=== PATIENT | male | born 1945 | race Two or more races ===

== ENCOUNTER 2019-01-22 15:53 | Inpatient (IN) | payer MEDICAID ==
[~2019-01-22] VITALS: Ht 157.5 cm; Wt 73.0 kg
--- NOTE | 2019-01-22 15:57 | NUR ---
ED Nurse Note: Pt is in the bathroom rosaura. Will call again.
[2019-01-22 16:19] VITALS: BP 152/78
--- NOTE | 2019-01-22 16:19 | NUR ---
ED Nurse Note: Patient brought in to ER by daughter from home due to chest pain 01/29. Patient is alert and oriented x4 and ambulatory with assist. calm and cooperative. skin clean and intact. pt is in gown and on speed reading teacher.
--- NOTE | 2019-01-22 16:29 | Emergency Room Report ---
History of Present Illness General Chief Complaint: Chest Pain Source: Patient Present Illness HPI 73-year-old male history of hypertension, presents with intermittent chest pain x3 weeks, last chest pain episode started at 8 AM, he went to urgent care, was noted to have a heart rate of 170s, patient endorses intermittent chest pain pressure-like that comes and goes, aggravated with exertion alleviated with rest , some nausea no diaphoresis, severity is moderate, patient presents for evaluation. Allergies: Coded Allergies: No Known Allergies (Unverified , 01/22/19) Patient History Past Medical History: see triage record Reviewed Nursing Documentation: PMH: Agreed; PSxH: Agreed Nursing Documentation-PMH Past Medical History: No History, Except For History Of Psychiatric Problem: Yes - Anxiety Review of Systems All Other Systems: negative except mentioned in HPI Physical Exam Vital Signs Date Time Temp Pulse Resp B/P (MAP) Pulse Ox O2 Delivery O2 Flow Rate FiO2 01/22/19 16:06 98.2 74 20 152/78 (102) 96 Room Air Sp02 EP Interpretation: reviewed, normal General Appearance: well appearing, no apparent distress, alert Head: normocephalic, atraumatic Eyes: bilateral eye PERRL, bilateral eye EOMI ENT: uvula midline, moist mucus membranes Neck: supple, thyroid normal, supple/symm/no masses Respiratory: lungs clear, no respiratory distress, no retraction, no accessory muscle use Cardiovascular #1: normal peripheral pulses, regular rate, rhythm, no edema, no gallop, no murmur Gastrointestinal: non tender, soft, no guarding, no rebound Musculoskeletal: normal inspection Neurologic: alert, oriented x3 Psychiatric: mood/affect normal Skin: no rash, warm/dry Medical Decision Making Diagnostic Impression: Primary Impression: Chest pain Qualified Codes: R07.9 - Chest pain, unspecified ER Course 73-year-old male history of hypertension presents for with chest pain concerning for possible ACS, aspirin given, EKG conducted, labs drawn, patient will be admitted for ACS rule out ASA given CXR neg Troponin neg Patient admitted to Dr. Roe 5:55pm Laboratory Tests Test 01/22/19 16:15 01/22/19 17:00 White Blood Count 12.7 K/UL (4.8-10.8) H Red Blood Count 4.68 M/UL (4.70-6.10) L Hemoglobin 15.2 G/DL (14.2-18.0) Hematocrit 46.2 % (42.0-52.0) Mean Corpuscular Volume 99 FL (80-99) Mean Corpuscular Hemoglobin 32.4 PG (27.0-31.0) H Mean Corpuscular Hemoglobin Concent 32.9 G/DL (32.0-36.0) Red Cell Distribution Width 13.1 % (11.6-14.8) Platelet Count 217 K/UL (150-450) Mean Platelet Volume 7.0 FL (6.5-10.1) Neutrophils (%) (Auto) 45.7 % (45.0-75.0) Lymphocytes (%) (Auto) 41.7 % (20.0-45.0) Monocytes (%) (Auto) 8.8 % (1.0-10.0) Eosinophils (%) (Auto) 2.6 % (0.0-3.0) Basophils (%) (Auto) 1.2 % (0.0-2.0) Prothrombin Time 10.8 SEC (9.30-11.50) Prothrombin Time INR 1.0 (0.9-1.1) PTT 26 SEC (23-33) Sodium Level 145 MMOL/L (136-145) Potassium Level 4.0 MMOL/L (3.5-5.1) Chloride Level 107 MMOL/L (98-107) Carbon Dioxide Level 30 MMOL/L (21-32) Anion Gap 8 mmol/L (5-15) Blood Urea Nitrogen 16 mg/dL (7-18) Creatinine 1.3 MG/DL (0.55-1.30) Estimate Glomerular Filtration Rate mL/min (>60) Glucose Level 79 MG/DL (74-106) Calcium Level 9.0 MG/DL (8.5-10.1) Total Bilirubin 0.5 MG/DL (0.2-1.0) Aspartate Amino Transferase (AST) 28 U/L (15-37) Alanine Aminotransferase (ALT) 34 U/L (12-78) Alkaline Phosphatase 73 U/L (46-116) Total Creatine Kinase 64 U/L (26-308) Creatine Kinase MB 0.5 NG/ML (0.0-3.6) Creatine Kinase MB Relative Index 0.7 Troponin I 0.000 ng/mL (0.000-0.056) Pro-B-Type Natriuretic Peptide 212 pg/mL (0-125) H Total Protein 7.7 G/DL (6.4-8.2) Albumin 3.6 G/DL (3.4-5.0) Globulin 4.1 g/dL Albumin/Globulin Ratio 0.9 (1.0-2.7) L Lipase 199 U/L (73-393) Thyroid Stimulating Hormone (TSH) 1.572 uiU/mL (0.358-3.740) Free Thyroxine 0.83 NG/DL (0.76-1.46) Free Triiodothyronine 3.2 pg/mL (2.3-4.2) Urine Opiates Screen Negative (NEGATIVE) Urine Barbiturates Screen Negative (NEGATIVE) Phencyclidine (PCP) Screen Negative (NEGATIVE) Urine Amphetamines Screen Negative (NEGATIVE) Urine Benzodiazepines Screen Negative (NEGATIVE) Urine Cocaine Screen Negative (NEGATIVE) Urine Marijuana (THC) Screen Negative (NEGATIVE) EKG Diagnostic Results EKG Time: 16:12 EP Interpretation: NSR, RBBB, rate 74, QTc 437, no acute ST elevations, left axis deviation Rate: normal Rhythm: NSR ST Segments: no acute changes Rhythm Strip Diag. Results Rhythm Strip Time: 16:29 EP Interpretation: yes Rate: 69 Rhythm: NSR, no PVC's, no ectopy Chest X-Ray Diagnostic Results Chest X-Ray Diagnostic Results : Chest X-Ray Ordered: Yes # of Views/Limited/Complete: 1 View Indication: Chest Pain EP Interpretation: Yes Interpretation: no consolidation, no effusion, no pneumothorax, no acute cardiopulmonary disease Impression: No acute disease Electronically Signed by: Juan Jose Ovalle MD Last Vital Signs Date Time Temp Pulse Resp B/P (MAP) Pulse Ox O2 Delivery O2 Flow Rate FiO2 01/22/19 16:19 71 20 Room Air 01/22/19 16:19 98.2 152/78 96 Disposition: ADMITTED INPATIENT Condition: Stable Juan Jose Ovalle MD Jan 22, 2019 16:29
--- NOTE | 2019-01-22 16:32 | NUR ---
ED Nurse Note: pt medicated as ordered. pt able to tolerate po meds. will continue to monitor.
[2019-01-22 16:35] LABS: BASOPHILS % (AUTO) 1.2 % (0.0-2.0); EOSINOPHILS % (AUTO) 2.6 % (0.0-3.0); HEMATOCRIT 46.2 % (42.0-52.0); HEMOGLOBIN 15.2 G/DL (14.2-18.0); LYMPHOCYTES % (AUTO) 41.7 % (20.0-45.0); MEAN CORPUSCULAR VOLUME 99 FL (80-99); MONOCYTES % (AUTO) 8.8 % (1.0-10.0); NEUTROPHILS % (AUTO) 45.7 % (45.0-75.0); PLATELET COUNT 217 K/UL (150-450); RED BLOOD COUNT 4.68 M/UL (4.70-6.10); RED CELL DISTRIBUTION WIDTH 13.1 % (11.6-14.8); WHITE BLOOD COUNT 12.7 K/UL (4.8-10.8)
[2019-01-22 16:48] LABS: ANION GAP 8 mmol/L (5-15); BLOOD UREA NITROGEN 16 mg/dL (7-18); CARBON DIOXIDE 30 MMOL/L (21-32); CHLORIDE 107 MMOL/L (98-107); CREATININE 1.3 MG/DL (0.55-1.30); SODIUM 145 MMOL/L (136-145)
[2019-01-22 17:04] LABS: ALANINE AMINOTRANSFERASE 34 U/L (12-78); ALBUMIN 3.6 G/DL (3.4-5.0); ALBUMIN/GLOBULIN RATIO 0.9 (1.0-2.7); ALKALINE PHOSPHATASE 73 U/L (46-116); ASPARTATE AMINO TRANSFERASE 28 U/L (15-37); BILIRUBIN,TOTAL 0.5 MG/DL (0.2-1.0); CKMB 0.5 NG/ML (0.0-3.6); CREATINE KINASE 64 U/L (26-308)
--- NOTE | 2019-01-22 17:08 | Diagnostic Imaging Report ---
EXAM: XR Chest, 1 View CLINICAL HISTORY: PREOP TECHNIQUE: Frontal view of the chest. COMPARISON: one FINDINGS: Lungs: Unremarkable. No consolidation. Pleural space: Unremarkable. No pneumothorax. Heart: Unremarkable. No cardiomegaly. Mediastinum: Unremarkable. Bones/joints: Unremarkable. IMPRESSION: No acute cardiopulmonary disease.
--- NOTE | 2019-01-22 18:50 | NUR ---
ED Nurse Note: called for report. per JADEN Da Silva, nurse has not been assigned. they will call me back.
[2019-01-22 19:01] VITALS: BP 149/80
--- NOTE | 2019-01-22 19:03 | NUR ---
HAND-OFF: Report given to JADEN Mendoza. Telemetry unit has not called back.
--- NOTE | 2019-01-22 19:07 | NUR ---
ED Nurse Note: received report from Kemi MOURA RN . pt VSS
[2019-01-22 20:00] VITALS: BP 160/80
--- NOTE | 2019-01-22 20:00 | NUR ---
NURSE NOTES: Received report from JADEN Mendoza, patient brought up from ED to telemetry floor via gurney, stable, VSS, able to transfer himself to bed,cardiac monitor technician placed, ambulatory, belonging list checked and signed, oriented patient to room and unit, bed lowest position, brakes on, call light within reach, will continue to monitor and reassess.
--- NOTE | 2019-01-22 20:00 | NUR ---
ED Nurse Note: Pt was brought up to telemetry rm 214-2 by RN. report given to JADEN Curry. Pt VSS. belonging list signed and remained with pt
[2019-01-22] MEDS ORDERED: Zolpidem 5mg tab ORAL PRN (20:15)
[2019-01-22] MEDS ORDERED: Milk of Magnesia 30ml Ud ORAL PRN (20:15)
[2019-01-22] MEDS ORDERED: Morphine Sulfate 4mg/ml Inj (IV USE ONLY) IVP PRN (20:15)
--- NOTE | 2019-01-22 20:15 | History & Physical ---
History and Physical History & Physicial HP dictated # [id number] Mitchel Roe MD Jan 22, 2019 20:15
[2019-01-22] MEDS: Docusate 100mg cap ORAL SCH (20:44)
[2019-01-22] MEDS: Morphine Sulfate 2mg/ml Inj(IV/IM USE ONLY) IVP PRN (20:46)
--- NOTE | 2019-01-22 22:15 | History and Physical Report ---
DATE OF ADMISSION: 01/22/2019 CHIEF COMPLAINT: Chest pain. HISTORY OF PRESENT ILLNESS: This is a 73-year-old [place]-speaking male with history of hypertension, who was admitted today with the intermittent chest pain. For the past three weeks, the patient's chest pain has been getting worse. Currently, the pain is better. PAST MEDICAL HISTORY: History of anxiety. MEDICATIONS: None per records. ALLERGIES: No known drug allergies. SOCIAL HISTORY: No history of smoking or alcohol abuse. REVIEW OF SYSTEMS: Noncontributory. PHYSICAL EXAMINATION: GENERAL: The patient is an elderly male, in no acute distress. VITAL SIGNS: Blood pressure 152/78, pulse 74, temperature 98.2, and respiratory rate 20. HEENT: [place] conjunctivae. Anicteric sclerae. NECK: Supple. LUNGS: Clear to auscultation. HEART: S1, S2 without murmurs or rubs. ABDOMEN: Soft, nontender. EXTREMITIES: No cyanosis or edema. LABORATORY FINDINGS: CBC shows a WBC of 12,700, hematocrit 46.2, hemoglobin 15.2, and platelets 217,000. Chemistry panel shows a serum sodium 145, potassium 4.0, chloride 107, CO2 30, BUN 16, and creatinine 1.3. TSH is 1.57. Tox screen was negative. ASSESSMENT: This is a 73-year-old male, who is admitted with atypical chest pain. PLAN: The patient will be on telemetry. Troponins will be checked. The patient will be ruled out for myocardial infarction. Echocardiogram will be ordered to assess LV function and also look for wall motion abnormalities. The patient will be on aspirin daily for DVT prophylaxis. Cardiology consultation will be obtained. Mitchel Roe M.D. DR: ALAN JOB#: [id number] CC:
[2019-01-23] VITALS: BP 120/64
[2019-01-23 04:00] VITALS: BP 145/84
--- NOTE | 2019-01-23 04:36 | NUR ---
NURSE NOTES: Received report from JADEN Nielsen. Patient is awake lying semi-clark's; resting comfortably. No signs of acute distress noted; denies pain at this time. AOx4; able to make needs known. Primarily Turkish speaking. Checked IV site; patent and flushed. No erythema, bleeding, or infiltration noted. Bed at lowest position, brakes on, siderails up x3. Call light within reach. Will continue to monitor.
[2019-01-23] MEDS: Morphine Sulfate 2mg/ml Inj(IV/IM USE ONLY) IVP PRN (06:19)
--- NOTE | 2019-01-23 07:26 | NUR ---
HAND-OFF: Report given to JADEN Boss. Patient is awake lying semi-clark's; resting comfortably. In stable condition.
--- NOTE | 2019-01-23 07:30 | NUR ---
NURSE NOTES: Received report from JADEN Mcadams. Pt is laying in bed. He states he had chest pain earlier but received medication and feels much better. Bed is in lowest position, side rails up X 2, and call light is within reach. Will continue to monitor.
[2019-01-23 08:00] VITALS: BP 132/72
[2019-01-23] MEDS: Aspirin Baby 81mg ORAL SCH (08:21)
[2019-01-23] MEDS: Docusate 100mg cap ORAL SCH ×2 (08:22→21:20)
[2019-01-23 12:00] VITALS: BP 135/67
--- NOTE | 2019-01-23 12:06 | General Progress Note ---
Assessment/Plan Problem List: (1) Chest pain ICD Codes: R07.9 - Chest pain, unspecified SNOMED: 30337019 Qualifiers: Qualified Codes: R07.9 - Chest pain, unspecified (2) LVH (left ventricular hypertrophy) ICD Codes: I51.7 - Cardiomegaly SNOMED: 65138577 [place] I: mild Assessment/Plan: cont with pepcid cardiology consult Discussed with RN Subjective Allergies: Coded Allergies: No Known Allergies (Unverified , 01/22/19) Subjective pain is better Objective Last 24 Hour Vital Signs Date Time Temp Pulse Resp B/P (MAP) Pulse Ox O2 Delivery O2 Flow Rate FiO2 01/23/19 09:00 Room Air 01/23/19 08:00 96.6 65 18 132/72 (92) 99 01/23/19 08:00 74 01/23/19 04:00 53 01/23/19 04:00 96.6 55 18 145/84 (104) 99 01/23/19 01:25 Room Air 01/23/19 00:00 96.6 55 18 120/64 (82) 95 01/23/19 00:00 61 01/22/19 20:21 67 01/22/19 20:00 96.4 61 18 160/80 (106) 100 01/22/19 20:00 98.2 62 19 144/70 99 Room Air 01/22/19 19:01 98.0 68 20 149/80 99 Room Air 01/22/19 16:19 71 20 Room Air 01/22/19 16:19 98.2 71 20 152/78 96 Room Air 01/22/19 16:06 98.2 74 20 152/78 (102) 96 Room Air Intake and Output 01/22/19 01/23/19 18:59 06:59 Intake Total 0 ml Balance 0 ml Intake Oral 0 ml # Voids 1 Laboratory Tests 01/22/19 16:15: White Blood Count 12.7H, Red Blood Count 4.68L, Hemoglobin 15.2, Hematocrit 46.2 , Mean Corpuscular Volume 99, Mean Corpuscular Hemoglobin 32.4H, Mean Corpuscular Hemoglobin Concent 32.9, Red Cell Distribution Width 13.1, Platelet Count 217, Mean Platelet Volume 7.0, Neutrophils (%) (Auto) 45.7, Lymphocytes (% ) (Auto) 41.7, Monocytes (%) (Auto) 8.8, Eosinophils (%) (Auto) 2.6, Basophils ( %) (Auto) 1.2, Prothrombin Time 10.8, Prothromb Time International Ratio 1.0, Activated Partial Thromboplast Time 26, Sodium Level 145, Potassium Level 4.0, Chloride Level 107, Carbon Dioxide Level 30, Anion Gap 8, Blood Urea Nitrogen 16 , Creatinine 1.3, Estimat Glomerular Filtration Rate , Glucose Level 79, Calcium Level 9.0, Total Bilirubin 0.5, Aspartate Amino Transf (AST/SGOT) 28, Alanine Aminotransferase (ALT/SGPT) 34, Alkaline Phosphatase 73, Total Creatine Kinase 64, Creatine Kinase MB 0.5, Creatine Kinase MB Relative Index 0.7, Troponin I 0.000, Pro-B-Type Natriuretic Peptide 212H, Total Protein 7.7, Albumin 3.6, Globulin 4.1, Albumin/Globulin Ratio 0.9L, Lipase 199, Thyroid Stimulating Hormone (TSH) 1.572, Free Thyroxine 0.83, Free Triiodothyronine 3.2 01/22/19 17:00: Urine Opiates Screen Negative, Urine Barbiturates Screen Negative, Phencyclidine (PCP) Screen Negative, Urine Amphetamines Screen Negative, Urine Benzodiazepines Screen Negative, Urine Cocaine Screen Negative, Urine Marijuana (THC) Screen Negative 01/23/19 07:40: Troponin I 0.000 Height (Feet): 5 Height (Inches): 2.00 Weight (Pounds): 161 Cardiovascular: normal rate Respiratory/Chest: lungs clear Edema: no edema noted Generalized Mitchel Roe MD Jan 23, 2019 12:06
--- NOTE | 2019-01-23 13:12 | Cardiac Electrophysiology PN ---
Subjective Subjective [id number] Objective Last 24 Hour Vital Signs Date Time Temp Pulse Resp B/P (MAP) Pulse Ox O2 Delivery O2 Flow Rate FiO2 01/23/19 12:00 97.5 58 18 135/67 (89) 97 01/23/19 12:00 60 01/23/19 09:00 Room Air 01/23/19 08:00 96.6 65 18 132/72 (92) 99 01/23/19 08:00 74 01/23/19 04:00 53 01/23/19 04:00 96.6 55 18 145/84 (104) 99 01/23/19 01:25 Room Air 01/23/19 00:00 96.6 55 18 120/64 (82) 95 01/23/19 00:00 61 01/22/19 20:21 67 01/22/19 20:00 96.4 61 18 160/80 (106) 100 01/22/19 20:00 98.2 62 19 144/70 99 Room Air 01/22/19 19:01 98.0 68 20 149/80 99 Room Air 01/22/19 16:19 71 20 Room Air 01/22/19 16:19 98.2 71 20 152/78 96 Room Air 01/22/19 16:06 98.2 74 20 152/78 (102) 96 Room Air Intake and Output 01/22/19 01/23/19 19:00 07:00 Intake Total 0 ml Balance 0 ml Intake Oral 0 ml # Voids 1 Laboratory Tests Test 01/22/19 16:15 01/22/19 17:00 01/23/19 07:40 White Blood Count 12.7 K/UL (4.8-10.8) H Red Blood Count 4.68 M/UL (4.70-6.10) L Hemoglobin 15.2 G/DL (14.2-18.0) Hematocrit 46.2 % (42.0-52.0) Mean Corpuscular Volume 99 FL (80-99) Mean Corpuscular Hemoglobin 32.4 PG (27.0-31.0) H Mean Corpuscular Hemoglobin Concent 32.9 G/DL (32.0-36.0) Red Cell Distribution Width 13.1 % (11.6-14.8) Platelet Count 217 K/UL (150-450) Mean Platelet Volume 7.0 FL (6.5-10.1) Neutrophils (%) (Auto) 45.7 % (45.0-75.0) Lymphocytes (%) (Auto) 41.7 % (20.0-45.0) Monocytes (%) (Auto) 8.8 % (1.0-10.0) Eosinophils (%) (Auto) 2.6 % (0.0-3.0) Basophils (%) (Auto) 1.2 % (0.0-2.0) Prothrombin Time 10.8 SEC (9.30-11.50) Prothromb Time International Ratio 1.0 (0.9-1.1) Activated Partial Thromboplast Time 26 SEC (23-33) Sodium Level 145 MMOL/L (136-145) Potassium Level 4.0 MMOL/L (3.5-5.1) Chloride Level 107 MMOL/L (98-107) Carbon Dioxide Level 30 MMOL/L (21-32) Anion Gap 8 mmol/L (5-15) Blood Urea Nitrogen 16 mg/dL (7-18) Creatinine 1.3 MG/DL (0.55-1.30) Estimat Glomerular Filtration Rate mL/min (>60) Glucose Level 79 MG/DL (74-106) Calcium Level 9.0 MG/DL (8.5-10.1) Total Bilirubin 0.5 MG/DL (0.2-1.0) Aspartate Amino Transf (AST/SGOT) 28 U/L (15-37) Alanine Aminotransferase (ALT/SGPT) 34 U/L (12-78) Alkaline Phosphatase 73 U/L (46-116) Total Creatine Kinase 64 U/L (26-308) Creatine Kinase MB 0.5 NG/ML (0.0-3.6) Creatine Kinase MB Relative Index 0.7 Troponin I 0.000 ng/mL (0.000-0.056) 0.000 ng/mL (0.000-0.056) Pro-B-Type Natriuretic Peptide 212 pg/mL (0-125) H Total Protein 7.7 G/DL (6.4-8.2) Albumin 3.6 G/DL (3.4-5.0) Globulin 4.1 g/dL Albumin/Globulin Ratio 0.9 (1.0-2.7) L Lipase 199 U/L (73-393) Thyroid Stimulating Hormone (TSH) 1.572 uiU/mL (0.358-3.740) Free Thyroxine 0.83 NG/DL (0.76-1.46) Free Triiodothyronine 3.2 pg/mL (2.3-4.2) Urine Opiates Screen Negative (NEGATIVE) Urine Barbiturates Screen Negative (NEGATIVE) Phencyclidine (PCP) Screen Negative (NEGATIVE) Urine Amphetamines Screen Negative (NEGATIVE) Urine Benzodiazepines Screen Negative (NEGATIVE) Urine Cocaine Screen Negative (NEGATIVE) Urine Marijuana (THC) Screen Negative (NEGATIVE) Simon Guillen MD Jan 23, 2019 13:12
[2019-01-23] MEDS ORDERED: Lexiscan 0.4mg/5ml syringe IV PRN (13:15)
--- NOTE | 2019-01-23 13:17 | Cardiology Report ---
APPROVED REPORT EXAM: Two-dimensional and M-mode echocardiogram with Doppler and color Doppler. INDICATION Chest Pain M-Mode DIMENSIONS IVSd1.2 (0.7-1.1cm)Left Atrium (MM)3.1 (1.6-4.0cm) LVDd4.2 (3.5-5.6cm)Aortic Root3.4 (2.0-3.7cm) PWd1.0 (0.7-1.1cm)Aortic Cusp Exc.1.5 (1.5-2.0cm) LVDs2.1 (2.5-4.0cm) PWs1.5 cm Normal left ventricular chamber size, systolic function and wall motion. Left ventricular ejection fraction estimated to be 65-70 %. Mild left ventricular hypertrophy. No evidence of pericardial effusion. All other cardiac chamber sizes are within normal limits. Focal aortic valve sclerosis with adequate cusp excursion. Thickened mitral valve leaflets with normal excursion. Mild mitral annulus and aortic root calcification. Pulmonic valve not well visualized. Normal tricuspid valve structure. IVC is normal in size with physiological collapse. A color flow and spectral Doppler study was performed and revealed: No aortic regurgitation. Mild mitral regurgitation. Mitral diastolic velocities suggest mild left ventricular diastolic dysfunction (Grade I). Mild tricuspid regurgitation. Tricuspid systolic velocities suggests peak right ventricular systolic pressure of 24 mmHg. Trace pulmonic regurgitation present.
--- NOTE | 2019-01-23 15:40 | NUR ---
CASE MANAGEMENT: REVIEW 73Y/M PRESENTED TO ED FROM HOME CC: CHEST PAIN X3 WEEKS SI: CHEST PAIN T 96.6 HR 53 RR 18 BP 145/84 SAT 95% ROOM AIR WBC 12.7 BNP 212 IS: ASA PO X1 PATIENT ADMITTED TO TELEMETRY UNIT 01/22/2019 DCP: PATIENT IS FROM HOME PLAN: 2D ECHO PENDING
[2019-01-23 16:00] VITALS: BP 146/64
--- NOTE | 2019-01-23 19:40 | NUR ---
HAND-OFF: Report given to JADEN Curry. Plan of care endorsed
[2019-01-23 20:00] VITALS: BP 133/59
--- NOTE | 2019-01-23 22:15 | Consultation ---
DATE OF CONSULTATION: 01/23/2019 CARDIOLOGY CONSULTATION REASON FOR CONSULTATION: Chest pain. HISTORY OF PRESENT ILLNESS: This is a 73-year-old -speaking gentleman with history of hypertension and hyperlipidemia, who presented to the hospital with intermittent chest pain that has been going on for the last 3 weeks. The patient's pain has been getting worse. The patient presented to the emergency room and EKG showed sinus rhythm with right bundle-branch block with no acute ST-T wave abnormalities. The patient's troponins were also negative and he underwent an echocardiogram that showed ejection fraction of 65% and no pericardial effusion. Cardiology consultation was requested for further evaluation and management. REVIEW OF SYSTEMS: Negative other than what was mentioned in the history of present illness. PAST MEDICAL HISTORY: As mentioned above. FAMILY HISTORY: Noncontributory. SOCIAL HISTORY: Lives with family. Does not smoke or drink alcohol. PHYSICAL EXAMINATION: VITAL SIGNS: Blood pressure is 135/67, pulse 58, respirations 18, and temperature 97.5. HEAD AND NECK: Showed no JVD. LUNGS: Clear. CARDIOVASCULAR: Shows regular S1 and S2 with no gallop or murmur. ABDOMEN: Soft. EXTREMITIES: No pitting edema. LABORATORY AND DIAGNOSTIC DATA: His EKG shows sinus rhythm with right bundle-branch block with no acute ischemic changes. Laboratories, sodium 145, potassium 4.0, BUN of 16, creatinine 1.3, and glucose of 79. Troponin negative x2. BNP is 212. White count is 12.7, hemoglobin of 15.2, hematocrit of 46.2, and platelet count of 217,000. INR is 1.0. Urine-tox screen is negative. ASSESSMENT AND PLAN: 1. Chest pain in a 73-year-old gentleman with history of hypertension. The patient was ruled out for myocardial infarction. On EKG, he has right bundle-branch block. An echocardiogram showed normal ejection fraction of 65%. We will proceed with a nuclear stress test for further evaluation. In the meantime, continue the patient on aspirin. 2. History of hypertension. Blood pressure currently is stable. Start the patient on Toprol 25 mg daily. 3. Questionable history of hyperlipidemia. We will check fasting lipid profile. Thank you very much for allowing me to participate in the care of this patient. Please do not hesitate to contact me for any questions regarding my evaluation. Simon Guillen M.D. DR: REYNA JOB#: [id number] CC:
[2019-01-24] VITALS (7 sets, daily range): BP systolic 110–140; BP diastolic 60–99
--- NOTE | 2019-01-24 07:00 | NUR ---
HAND-OFF: Report given to JADEN Boss, patient in stable condition, plan of care endorsed.
--- NOTE | 2019-01-24 07:52 | NUR ---
NURSE NOTES: Received report from JADEN Curry. Pt is sitting up in bed. Pt understands that he can not have anything to eat until after his stress test. Bed is in lowest position, side rails up X2, and call light is within reach. Will continue to monitor.
[2019-01-24] MEDS: Atenolol 25mg tab ORAL SCH (09:00)
[2019-01-24] MEDS: Docusate 100mg cap ORAL SCH ×2 (09:06→21:12)
[2019-01-24] MEDS: Aspirin Baby 81mg ORAL SCH (09:06)
--- NOTE | 2019-01-24 10:17 | NUR ---
*-* NO INSURANCE INFORMATION IN THE BAR UNABLE TO SEND CLINICALS OR REVIEWS *-*
--- NOTE | 2019-01-24 13:24 | Cardiac Electrophysiology PN ---
Assessment/Plan Assessment/Plan 1. Chest pain in a 73-year-old gentleman with history of hypertension. The patient was ruled out for myocardial infarction. On EKG, he has right bundle-branch block. An echocardiogram showed normal ejection fraction of 65%. Nuclear stress test report from today is pending. 2. History of hypertension. Blood pressure currently is stable on Toprol 25 mg daily. 3. Questionable history of hyperlipidemia. D WRN Subjective Subjective No CP or SOB. Had Lexiscan Cardiolite today. Results pending. Objective Last 24 Hour Vital Signs Date Time Temp Pulse Resp B/P (MAP) Pulse Ox O2 Delivery O2 Flow Rate FiO2 01/24/19 09:00 Room Air 01/24/19 08:00 56 01/24/19 08:00 97.0 58 21 140/78 (98) 98 01/24/19 04:00 97.0 66 19 136/99 (111) 96 01/24/19 04:00 61 01/24/19 00:00 89 01/24/19 00:00 97.2 70 19 130/60 (83) 96 01/23/19 21:00 Room Air 01/23/19 20:00 73 01/23/19 20:00 97.6 70 18 133/59 (83) 97 01/23/19 16:00 97.3 57 18 146/64 (91) 97 01/23/19 16:00 64 Intake and Output 01/23/19 01/24/19 18:59 06:59 Intake Total 720 ml Balance 720 ml Intake Oral 720 ml # Voids 2 2 Objective HEAD AND NECK: Showed no JVD. LUNGS: Clear. CARDIOVASCULAR: Shows regular S1 and S2 with no gallop or murmur. ABDOMEN: Soft. EXTREMITIES: No pitting edema. Simon Guillen MD Jan 24, 2019 13:23
--- NOTE | 2019-01-24 13:44 | NUR ---
CARE MANAGERSUPERMARKET MANAGER SI: CHEST PAIN T. 97.0 HR 58 RR 21 B/P 140/78 RA 98% IS: ATENOLOL PO ASA PO STRESS TEST TELE STATUS
--- NOTE | 2019-01-24 15:04 | General Progress Note ---
Assessment/Plan Problem List: (1) Chest pain ICD Codes: R07.9 - Chest pain, unspecified SNOMED: 42106020 Qualifiers: Qualified Codes: R07.9 - Chest pain, unspecified (2) LVH (left ventricular hypertrophy) ICD Codes: I51.7 - Cardiomegaly SNOMED: 81801647 Assessment/Plan: cont with pepcid Discussed with Dr Guillen Discussed with RN check stress test results Subjective Allergies: Coded Allergies: No Known Allergies (Unverified , 01/22/19) Subjective No CP Objective Last 24 Hour Vital Signs Date Time Temp Pulse Resp B/P (MAP) Pulse Ox O2 Delivery O2 Flow Rate FiO2 01/24/19 12:00 97.3 65 21 139/79 (99) 95 01/24/19 12:00 60 01/24/19 09:00 Room Air 01/24/19 08:00 56 01/24/19 08:00 97.0 58 21 140/78 (98) 98 01/24/19 04:00 97.0 66 19 136/99 (111) 96 01/24/19 04:00 61 01/24/19 00:00 89 01/24/19 00:00 97.2 70 19 130/60 (83) 96 01/23/19 21:00 Room Air 01/23/19 20:00 73 01/23/19 20:00 97.6 70 18 133/59 (83) 97 01/23/19 16:00 97.3 57 18 146/64 (91) 97 01/23/19 16:00 64 Intake and Output 01/23/19 01/24/19 18:59 06:59 Intake Total 720 ml Balance 720 ml Intake Oral 720 ml # Voids 2 2 Height (Feet): 5 Height (Inches): 2.00 Weight (Pounds): 161 Cardiovascular: normal rate Respiratory/Chest: lungs clear Mitchel Roe MD Jan 24, 2019 15:04
--- NOTE | 2019-01-24 15:24 | Diagnostic Imaging Report ---
Indication: chest pain Technique: The study was conducted under the supervision of a moisture meter reader. lexiscan (regadenoson) infusion over 10 seconds followed by intravenous administration of 30 mCi of technetium 99m Myoview was performed. Three plane SPECT imaging of the heart was then performed. A resting study was performed as part of the one-day protocol with 10.7 mCi of technetium 99m myoview injected intravenously at that time. Three plane SPECT imaging of the heart was obtained. Comparison: None Clinical data: 1. Clinical response: Non ischemic 2. Electrocardiographic response: Non ischemic Findings: The myocardial perfusion scan demonstrates LVEF of 85% which is likely overestimated. SPECT images show no fixed or reversible perfusion defects. IMPRESSION: Negative myocardial perfusion scan
--- NOTE | 2019-01-24 20:00 | NUR ---
HAND-OFF: Report given to JADEN Morales. Plan of care endorsed
--- NOTE | 2019-01-24 20:01 | NUR ---
NURSE NOTES: Received report from JADEN Boss. Pt is awake in bed. AOx4. In no acute distress. IV line intact and patent. Grandson is at bedside. Bed in lowest position, call light within reach. Will continue plan of care.
[2019-01-25] VITALS: BP 123/65
[2019-01-25 04:00] VITALS: BP 123/60
--- NOTE | 2019-01-25 07:10 | NUR ---
NURSE NOTES: Nurse report given by JADEN Morales. Patient's awake, eating at side of the bed. AO x 4. No s/s of acute distress or SOB. Denies pain. Bed at lowest position, breaks engaged and call light within reach. Will continue to monitor.
--- NOTE | 2019-01-25 07:27 | NUR ---
HAND-OFF: Report given to JADEN Villanueva.
[2019-01-25 08:00] VITALS: BP 139/72
[2019-01-25] MEDS: Aspirin Baby 81mg ORAL SCH (09:09)
[2019-01-25] MEDS: Docusate 100mg cap ORAL SCH (09:09)
[2019-01-25] MEDS: Atenolol 25mg tab ORAL SCH (09:09)
--- NOTE | 2019-01-25 11:46 | Cardiac Electrophysiology PN ---
Assessment/Plan Assessment/Plan 1. Chest pain in a 73-year-old gentleman with history of hypertension. The patient was ruled out for myocardial infarction. On EKG, he has right bundle-branch block. An echocardiogram showed normal ejection fraction of 65%. Nuclear stress test showed no ischemia or scar 2. History of hypertension. Blood pressure currently is stable on Toprol 25 mg daily. 3. Questionable history of hyperlipidemia. ZURI RN OK to DC Subjective Subjective No CP or SOB. Had Lexiscan Cardiolite yesterday Objective Last 24 Hour Vital Signs Date Time Temp Pulse Resp B/P (MAP) Pulse Ox O2 Delivery O2 Flow Rate FiO2 01/25/19 09:09 73 139/72 01/25/19 09:00 Room Air 01/25/19 08:00 98.4 73 20 139/72 (94) 97 01/25/19 04:00 98.0 59 18 123/60 (81) 99 01/25/19 04:00 59 01/25/19 00:00 67 01/25/19 00:00 97.6 67 18 123/65 (84) 98 01/24/19 21:00 Room Air 01/24/19 20:00 72 01/24/19 20:00 97.9 18 126/62 (83) 98 01/24/19 16:00 97.9 70 23 110/66 (81) 97 01/24/19 16:00 68 01/24/19 12:00 97.3 65 21 139/79 (99) 95 01/24/19 12:00 60 Intake and Output 01/24/19 01/25/19 18:59 06:59 # Voids 2 Objective HEAD AND NECK: Showed no JVD. LUNGS: Clear. CARDIOVASCULAR: Shows regular S1 and S2 with no gallop or murmur. ABDOMEN: Soft. EXTREMITIES: No pitting edema. Simon Guillen MD Jan 25, 2019 11:45
[2019-01-25 12:00] VITALS: BP 115/63
--- NOTE | 2019-01-25 14:39 | General Progress Note ---
Assessment/Plan Problem List: (1) Chest pain ICD Codes: R07.9 - Chest pain, unspecified SNOMED: 48746415 Qualifiers: Qualified Codes: R07.9 - Chest pain, unspecified (2) LVH (left ventricular hypertrophy) ICD Codes: I51.7 - Cardiomegaly SNOMED: 92927804 Assessment/Plan: Dc today Subjective Allergies: Coded Allergies: No Known Allergies (Unverified , 01/22/19) Subjective No CP Objective Last 24 Hour Vital Signs Date Time Temp Pulse Resp B/P (MAP) Pulse Ox O2 Delivery O2 Flow Rate FiO2 01/25/19 12:00 63 01/25/19 12:00 98.3 65 20 115/63 (80) 100 01/25/19 09:09 73 139/72 01/25/19 09:00 Room Air 01/25/19 08:00 98.4 73 20 139/72 (94) 97 01/25/19 08:00 89 01/25/19 04:00 98.0 59 18 123/60 (81) 99 01/25/19 04:00 59 01/25/19 00:00 67 01/25/19 00:00 97.6 67 18 123/65 (84) 98 01/24/19 21:00 Room Air 01/24/19 20:00 72 01/24/19 20:00 97.9 18 126/62 (83) 98 01/24/19 16:00 97.9 70 23 110/66 (81) 97 01/24/19 16:00 68 Intake and Output 01/24/19 01/25/19 18:59 06:59 # Voids 2 Height (Feet): 5 Height (Inches): 2.00 Weight (Pounds): 161 Cardiovascular: normal rate Respiratory/Chest: lungs clear Edema: no edema noted Generalized Mitchel Roe MD Jan 25, 2019 14:39
[2019-01-25] MEDS ORDERED: FAMOTIDINE20 MG ORAL (14:43)
--- NOTE | 2019-01-25 15:56 | NUR ---
NURSE NOTES: Patient's getting discharged per Dr. Johnnie Roe's order. Order acknowledged and carried out. Patient's family member is notified of patient's discharging to home. Patient's belonging list and discharge instruction went over with patient and signed by patient. Patient is prescribed medication to get per Dr. Mely Roe's order. residential monitor, ID band and IV are removed. Patient's stable, AO x 4, denies chest pain, no s/s of acute distress or SOB. Patient's off the unit and goes home with family member. oxygen equipment technician and charge nurse are notified.
--- NOTE | 2019-01-26 12:17 | Discharge Summary ---
Discharge Summary Discharge Summary _ DATE OF ADMISSION: 01/22/2019 DATE OF DISCHARGE: 01/25/2019 DISCHARGED BY: Dr. Roe REASON FOR ADMISSION: 73 years old male with past medical history of hypertension , anxiety , presented to emergency department with complaint of intermittent chest pain for the past 3 weeks , which was getting progressively worse. Chest pain described as pressure-like, intermittent , aggravated with exertion and alleviated with rest , with associated nausea, but no diaphoresis , moderate in severity. Vital signs were stable; blood pressure slightly elevated 152/78. Laboratory work-up revealed mild leukocytosis WBC 12.7, stable hemoglobin and hematocrit. Stable electrolytes. BUN 16, creatinine 1.3. Glucose 79. Stable LFT and lipase. Troponin negative. Pro BNP 212. EKG revealed normal sinus rhythm with right bundle branch block , no acute ischemic changes. TSH within range 1.572. Urine toxicology screen was negative. Chest x-ray revealed no acute cardiopulmonary pathology. Patient received aspirin in the emergency department and was admitted to telemetry floor for further management. CONSULTANTS: maintenance technician Dr. Florentino [facility] COURSE: Patient admitted to telemetry floor. Serial troponin were negative. EKG revealed no acute ischemic changes. Patient was ruled out for acute myocardial infarction. EKG showed right bundle branch block. Echocardiogram demonstrated preserved ejection fraction 65 to 70% with mild left ventricular hypertrophy. No evidence of wall motion abnormality. No evidence of pericardial effusion. Right ventricular systolic pressure 14. Patient was continued on antiplatelet therapy with aspirin. Patient started on beta-wilfredo for blood pressure management. Blood pressure remained stable. GI prophylaxis provided. Patient subsequently undergone nuclear stress test, which was negative. Extension Associate clear patient for discharge. Patient subsequently was discharged home. Outpatient follow-up with a primary care provider in 1 week. FINAL DIAGNOSES: Chest pain atypical Hypertension Right bundle branch block Hyperlipidemia Left ventricular hypertrophy DISCHARGE MEDICATIONS: See Medication Reconciliation list. DISCHARGE INSTRUCTIONS: Patient was discharged home. Follow up with primary care provider in one week. I have been assigned to dictate discharge summary for this account. I was not involved in the patient's management. Marichuy Torres NP Jan 26, 2019 12:17
--- NOTE | 2019-01-26 19:05 | Cardiology Report ---
APPROVED REPORT EKG Measurement Heart [id number] TN [id number] Normal sinus rhythm Right bundle branch block Abnormal ECG
--- NOTE | 2019-01-30 13:27 | NUR ---
CASE MANAGEMENT: CM review and clinical information (face sheet/ ER MD notes/ H&P/DC summary) faxed to [facility] @ [phone]. T# [id number]
--- NOTE | 2019-02-02 23:20 | Coder Physician Query ---
PLEASE COMPLETE THE DOCUMENT BEFORE SIGNING Dear Dr. CALZADA Date: 02/02/19 Marzipan Molder/CDS' Name : Melita Bae [facility] Exercise your independent professional judgment when responding to query. Questions asked do not imply particular answer is desired or expected. We greatly appreciate your clarification on this issue. HOSPITAL COURSE: Serial troponin were negative. EKG revealed no acute ischemic changes. Patient was ruled out for acute myocardial infarction. EKG showed right bundle branch block. Echocardiogram demonstrated preserved ejection fraction 65 to 70% with mild left ventricular hypertrophy. No evidence of wall motion abnormality. No evidence of pericardial effusion. Right ventricular systolic pressure 14. Patient was continued on antiplatelet therapy with aspirin. Patient started on beta-wilfredo for blood pressure management. Blood pressure remained stable. GI prophylaxis provided. Patient subsequently undergone nuclear stress test, which was negative. Please document the suspected etiology of Chest Pain: a.Type: []Cardiac [x]Non-cardiac []Unspecified b.Etiology - cardiac [] Aortic dissection []Mitral valve prolapsed [] Acute myocardial infarction []Spasm of coronary arteries [] Coronary Artery Disease []Pericarditis c.Etiology - non-cardiac [] Anxiety []Pleurisy [] Cancer []Pneumonia, type [x] Costochondritis []Pneumothorax [] GERD/Esophagitis []Pulmonary embolism [] Unable to determine []Other: Please also document in your Progress Notes and/or Discharge Summary and indicate if the condition was present on admission. Mitchel Calzada M.D. Date & Time [facility]
== END 2019-01-25 16:00 | disposition home or self-care (01) | DRG 203 ==
LOC: EMR 16:36 → 2E 17:47 → EDBEDREQ 17:53 → OBSVTOIN 20:10
DX: M94.0 Chondrocostal junction syndrome [Tietze] (principal); I10 Essential (primary) hypertension; I51.7 Cardiomegaly; I45.10 Unspecified right bundle-branch block; F41.9 Anxiety disorder, unspecified; E78.5 Hyperlipidemia, unspecified
CPT/HCPCS: 36415; 71045; 78452; 80053; 80307; 82550; 82553; 83690; 83880; 84439; 84443; 84481; 84484; 85025; 85610; 85730; 93005; 93017; 93306; 99285; J2785